=== PATIENT | female | born 1940 | race African-American/Black ===

== ENCOUNTER 2017-10-30 10:29 | Inpatient (IN) | payer OTHER ==
[~2017-10-30] VITALS: Ht 167.6 cm; Wt 77.7 kg
[2017-10-30] VITALS (44 sets, daily range): BP systolic 56–135; BP diastolic 31–122
--- NOTE | ~2017-10-30 | H ---
[facility] [place] [address] HISTORY AND PHYSICAL Name: REAGAN OAKLEY Room #: 351-P [facility] IN M.R.#: [id number] Admission: 10/30/17 Attend Phys: Dudley Knight Discharge: 11/03/17 Date of : 36 Report #: [id number] THIS REPORT FOR: //name// CC: Luis Merida ATTENDING PHYSICIAN: Dr. Luis Merida. DICTATING PHYSICIAN: Dr. Gudino. CHIEF COMPLAINT: Severe respiratory distress with nausea, vomiting. HISTORY OF PRESENT ILLNESS: The patient is a 77-year-old lady with known history of persistent vegetative state with chronic respiratory failure, who was at [facility]. The patient was noted to have severe large emesis with possible aspiration. She was noted to have severe respiratory distress while on the ventilator and was sent to the Emergency Room. On evaluation in the Emergency Room, she was noted to have a systolic blood pressure in the 60s and was noted to have septic syndrome. She also has been noted to have small-bowel obstruction and is currently being managed in the Intensive Care Unit. PAST MEDICAL HISTORY: Significant for history of small-bowel obstruction, hypertension, bowel resection, coronary artery disease, hypercholesterolemia, carcinoid tumors of the large intestine, respiratory failure, vegetative state, anoxic encephalopathy and history of cardiac arrest. ALLERGIES: She is known to be allergic to PEANUT, CHEESE and DYE. MEDICATIONS: She was currently on was metoclopramide, metoprolol, Pepcid, dextran, Tylenol and nebulizer treatments. REVIEW OF SYSTEMS: Not possible. SOCIAL HISTORY: Not available. PHYSICAL EXAMINATION: GENERAL: Elderly lady who is unresponsive. She is on a ventilator. She is having low grade temperature. Blood pressure was 92/49, pulse of 100 per minute. NECK: The patient had a tracheostomy with ventilator attached to it. LUNGS: Coarse breath sounds bilaterally. ABDOMEN: Diffuse swelling, diffuse distention with some diffuse tenderness. LABORATORY DATA: On admission showed a pH of 7.4, pCO2 of 32, pO2 of 70 and white cell count was 13.1, hemoglobin 8.6, hematocrit 25.6 and a platelet count of 356. Sodium 143, potassium 3.6, chloride 106, bicarbonate 26, BUN of 22, creatinine 1.1, glucose of 113. [address] [address] HISTORY AND PHYSICAL Name: REAGAN OAKLEY Room #: [address] [place] [address] IN .R.#: [id number] Admission: 10/30/17 Attend Phys: Dudley Knight Discharge: 11/03/17 Date of : 36 Report #: [id number] ASSESSMENT: 1. Sepsis syndrome. 2. Chronic respiratory failure. 3. Small-bowel obstruction. 4. Vegetative state. PLAN: To manage her in the Intensive Care Unit with sepsis syndrome and have a surgical consultation for the small-bowel obstruction. Also, have pulmonary consult and infectious disease consult. The patient to be continued on antibiotics. <ELECTRONICALLY SIGNED> By: Nory Gudino MD 11/08/17 1359 [id number] Nory Gudino MD /nt
--- NOTE | ~2017-10-30 | D ---
[facility] [address] DISCHARGE SUMMARY Name: REAGAN OAKLEY Room #: 351-P [facility] IN M.R.#: [id number] Admission: 10/30/17 Attend Phys: Dudley Knight Discharge: 11/03/17 Date of : 36 Report #: [id number] THIS REPORT FOR: //name// CC: Luis Merida DATE OF SERVICE: 11/03/2017 FINAL DIAGNOSES: 1. Small-bowel obstruction. 2. Ileus. 3. Chronic respiratory failure. 4. Ventilator dependence. 5. Anemia of chronic disease. 6. Healthcare-associated pneumonia. HOSPITAL COURSE: The patient was admitted with nausea and vomiting. She was diagnosed with a small-bowel obstruction. Ultimately, this turned out to be ileus or likely related as an adynamic source from her neurologic injury years ago, bedbound status and chronic ventilator status. Her bowel issues were treated conservatively. Ultimately bowel function opened up and tube feeding was restored. There was also a concern of infection with x-ray findings. Pulmonary and ID managed this with antibiotics. There were no other interval complications. PHYSICAL EXAMINATION: GENERAL: On the day of discharge, she was not responsive at her baseline, on the ventilator at baseline. VITAL SIGNS: Stable. LUNGS: Clear. HEART: Regular. ABDOMEN: Soft, distended. Normoactive bowel sounds. Tube feed infusing. EXTREMITIES: Had 1+ nonpitting edema. DISPOSITION: [facility]. She will continue Levaquin for an additional 7 days. Tube feeding and other medications to continue. I have increased her Reglan to 4 times a day. She has very poor prognosis with no meaningful expectations of recovery from her underlying neurologic injury years ago. <ELECTRONICALLY SIGNED> By: Eliot Jhaveri MD 11/04/17 1110 1309 1656 Eliot Jhaveri MD /nt
--- NOTE | ~2017-10-30 | HC ---
[facility] [place] [address] CONSULTATION Name: REAGAN OAKLEY Room #: 240-P ADM IN M.R.#: [id number] Admission: 10/30/17 Attend Phys: Dudley Knight Discharge: Date of : 38 Report #: [id number] THIS REPORT FOR: //name// CC: Luis Merida DATE OF SERVICE: 10/30/2017 CONSULTATION: Infectious Diseases. Ms Oakley is a 77-year-old female transferred from [facility] where she is a chronic ventilator patient, to the ER because of aspiration of tube feeding. Apparently, the patient was having trouble with her tube feeding. It was reported that they were able to suction 1000 mL of tube feeding from her lungs via her trach. She was transferred from the vent unit at [facility] to the Emergency Room at [facility]. In transit, her blood pressure started going down. In the ER, her blood pressure was 56/31. She was reportedly hypertensive at [facility] before she left. Temperature was 100.8. Further workup showed significant basal infiltrates, almost mass-like, as well as a small bowel obstruction on CT scan. Infectious Disease consultation was requested to assist with evaluation and management. PAST MEDICAL HISTORY: Apparently, the patient was fairly healthy in November 2013. She had a cheese allergy. According to Dr. Sebastian's note, initially, she was eating popcorn from a 3-flavored can, one of the flavors included cheese popcorn. Apparently, she had enough cheese in the other flavors to initiate an anaphylactic reaction with swelling of her tongue. She developed airway obstruction. It was difficult to achieve intubation because of the swelling. The patient became anoxic and had a cardiac arrest. She was resuscitated, but was left with severe anoxic brain injury and a chronic vegetative state. She has been essentially comatose on a ventilator since November 2013. Other medical conditions include hypertension, hyperlipidemia, myocardial infarction, pancreatitis, benign carcinoid tumors of the intestine. PAST SURGICAL HISTORY: Includes a PEG tube and then an abscess due to PEG tube requiring intraabdominal surgery. The patient developed adhesions and had another procedure for lysis of adhesions. ALLERGIES: THE PATIENT'S CHART NOTES ALLERGY TO PEANUTS, CHEESE AND NUTS, WHICH CAUSE ANAPHYLACTIC REACTIONS. MEDICATION RECONCILIATION: The patient's current medication include famotidine 20 mg IV daily, vancomycin 500 mg q. 12, enoxaparin 30 mg subq at bedtime, albumin 250 mg as directed, p.r.n. glucagon, dextrose glucose, sliding scale insulin, epinephrine, vasopressin, norepinephrine. The patient is on piperacillin and tazobactam 2.25 q. 6 hours. She has p.r.n. morphine, [address] [address] CONSULTATION Name: ADINMARINARASSARA Room #: 240-P [facility] IN M.R.#: [id number] Admission: 10/30/17 Attend Phys: Dudley Knight Discharge: Date of : 38 Report #: [id number] midazolam, lorazepam. She has scheduled DuoNeb inhalers. She received a one-time dose of furosemide as well as 3 liters of fluid. She is on vancomycin as noted with 1.5 g load followed by 500 mg q. 12 hours, Cipro 400 mg IV x 1 and Zosyn. The patient has p.r.n. Tylenol. FAMILY HISTORY: Noncontributory. SOCIAL HISTORY: The patient is a chronic ventilator patient at [facility]. No use of tobacco, alcohol or illegal drugs. REVIEW OF SYSTEMS: Unavailable as the patient is comatose chronically. PHYSICAL EXAMINATION: GENERAL: The patient appears her stated age. She appears to be in chronic coma, not in distress. VITAL SIGNS: Show maximum temperature 100.8 axillary. Blood pressure was measured as low as 56/31 and up to 83/54 after fluid resuscitation. SKIN: Shows no rash, no lesion. ENT: Shows chronic swelling of the mouth and tongue. The mouth is open. The patient has a mature tracheotomy. CHEST: Breath sounds are diminished. HEART: Sounds S1, S2. ABDOMEN: Belly soft, not tender. Gastrostomy tube is present. I cannot appreciate any distention, tympany in the belly. Bowel sounds are diminished. The patient cannot register any discomfort. EXTREMITIES: Show contractures from chronic coma, but otherwise unremarkable. LABORATORY DATA: White count is 14,000, hemoglobin 13, hematocrit 39%, platelets 597,000. Electrolytes are normal. BUN 24, creatinine 1.1. Lactate was 3.1 initially and then down to 1.7. CT scan shows a small bowel obstruction at the level of the jejunum with a transition zone, small bowel is dilated to 4 cm. Chest x-ray shows bibasilar dense infiltrates. ASSESSMENT AND PLAN: I suspect the patient is suffering from aspiration pneumonia due to small bowel obstruction, compounded by tube feeding. The patient is a chronic ventilator patient in a long-term hospital, so could very well have resistant bull. I believe broad-spectrum antibiotic therapy with 3 drugs including vancomycin, Zosyn and a quinolone is appropriate. We will be able to have results of sputum culture as well as blood and urine cultures within 24-48 hours. We also have ordered a methicillin-resistant Staphylococcus aureus swab of the nares. The surgeon who evaluated the patient put her gastrostomy tube to gravity drainage. If indeed she has another bowel obstruction, which does not respond to medical therapy, this may be an appropriate time to discuss with family or power of sweeper brush maker machine goals of care for this unfortunate patient. For now, we will try to treat the sepsis with [facility] [address] [place] [address] CONSULTATION Name: REAGAN OAKLEY Room #: 240-P ADM IN M.R.#: [id number] Admission: 10/30/17 Attend Phys: Dudley Knight Discharge: Date of : 38 Report #: [id number] broad-spectrum antibiotic therapy, respiratory toilet and follow her abdominal condition. I appreciate the opportunity to offer input in the care of the patient. I will be happy to cover through the weekend until Dr. Merida returns on Wednesday. Thank you for this consultation. <ELECTRONICALLY SIGNED> By: Joseph Dia MD 10/31/17 1922 2329 2 Joseph Dia MD /nt
--- NOTE | ~2017-10-30 | EKG ---
[place] [address] [facility] [place] [address] ELECTROCARDIOGRAM REPORT Name: REAGAN OAKLEY Room #: 240-P ADM IN M.R.#: [id number] Admission: 10/30/17 Attend Phys: Dudley Knight Discharge: Date of : 38 Report #: [id number] THIS REPORT FOR: //name// [facility] ED Test Date: 2017-10-30 Test Time: 10:39:16 Pat Name: REAGAN OAKLEY Department: Room: 240 Gender: F Revit Drafter: Mikey GREEN : 1940 Requested By: Kamini Keller Order Number: [id number] MD: Sebastian Melendez Measurements Intervals [place] Rate: 126 P: 62 PA: 144 QRS: -47 QRSD: 99 T: 35 QT: 306 QTc: 444 Interpretive Statements Sinus tachycardia Low voltage QRS Compared to ECG 02/04/2015 16:08:59 Heart rate has increased Electronically Signed On 10-30-2017 14:44:24 HEEL SEAT FITTER MACHINE by Sebastian Melendez [email or web address] <ELECTRONICALLY SIGNED> By: Sebastian Melendez MD, [facility] 10/30/17 1444 1039 1039 Sebastian Melendez MD, [facility] /EPI
--- NOTE | ~2017-10-30 | HC ---
[facility] [place] [place] [address] CONSULTATION Name: REAGAN OAKLEY Room #: 240-P ADM IN M.R.#: [id number] Admission: 10/30/17 Attend Phys: Dudley Knight Discharge: Date of : 38 Report #: [id number] THIS REPORT FOR: //name// CC: Sajan Merida PRIMARY CARE PHYSICIAN: Dr. Luis Merida. REFERRAL PHYSICIAN: ____. REASON FOR REFERRAL: [id number] respiratory failure. HISTORY OF PRESENT ILLNESS: The patient is a 77-year-old -Italian female who was brought to the Emergency Room following an episode of nausea, vomiting and apparent aspiration. A pulmonary consultation was requested. The patient resides at [facility]. She is in a persistent vegetative state on chronic mechanical ventilation. About a week ago, the patient had an episode of nausea, vomiting. Earlier today, she was found to have fever, temperature of 100.3 degrees Celsius. According to the staff at [facility], there was approximately 1000 mL of secretion suction through the ET tube, which was felt to be tube feeds. Currently, she is doing fairly well. Chest x-ray does show bilateral perihilar infiltrates, greater in the right than the left. PAST MEDICAL HISTORY: As mentioned above. She had an apparent cardiac arrest following hospitalization in 2012 when she was admitted for bowel obstruction. She has been in persistent vegetative state. Past history of myocardial infarction, chronic ventilator dependency, history of carcinoid tumor involving the large colon, status post resection, hypertension, status post PEG, tracheostomy, hypertension, history of pancreatitis, hypercholesterolemia, history of anaphylactic reaction in 2014. Records are incomplete as I do not have records from her current facility where the patient resides. PAST SURGICAL HISTORY: As mentioned above including past history of partial small-bowel obstruction at [facility] in 2012. ALLERGIES: None to medications, but she is allergic TO PEANUTS, which causes anaphylaxis, she is also said to be allergic to CHEESE and also CONTRAST DYE. MEDICATIONS ON TRANSFER: Include Lopressor, Reglan, nebulized DuoNeb, scopolamine patch, ____. FAMILY HISTORY: Noncontributory. [facility] [address] [place] [address] CONSULTATION Name: REAGAN OAKLEY Room #: Formerly named [facility] IN R.#: [id number] Admission: 10/30/17 Attend Phys: Dudley Knight Discharge: Date of : 38 Report #: [id number] SOCIAL HISTORY: There is no history of alcohol or tobacco use. She currently resides at [facility]. REVIEW OF SYSTEMS: Deferred as the patient is not able to provide answers. PHYSICAL EXAMINATION: GENERAL: She is not responsive. Eyes are open. VITAL SIGNS: Temperature 100.8 degrees axillary, pulse is 110, respiratory rate is 30, blood pressure is 92/58 mmHg, saturation 94%. HEENT: Normocephalic, atraumatic. Status post tracheostomy. NECK: Supple, without lymphadenopathy or thyromegaly. CHEST: Breath sounds are coarse bilaterally. Few scattered crackles are heard in the bases. No overt wheezes. CARDIOVASCULAR: Normal S1, S2. No murmurs or gallop. There is no JVD. There is no carotid bruit. Pulses are 2+/4+ bilaterally. ABDOMEN: Soft, no masses felt. Positive for PEG tube placement. GENITOURINARY: Deferred. RECTAL: Deferred. EXTREMITIES: No cyanosis, clubbing, edema. LABORATORY DATA: Portable chest x-ray again shows bilateral perihilar infiltrates greater in the right than the left. CT abdomen and pelvis shows small-bowel obstruction in the proximal to mid small bowel area, status post gastrostomy tube. Influenza A and B is negative. Arterial blood gas revealed pH 7.52, pCO2 of 27, pO2 of 68 on FiO2 40%. Electrolytes: Sodium 136, potassium 3.4, chloride 99, CO2 of 27. BUN is 27; creatinine is 1.6, her normal baseline creatinine. Albumin 2.3. IMPRESSION: 1. Apparent massive aspiration in this 77-year-old -Italian female. Chest x-ray shows bilateral infiltrates. Aspiration pneumonia is likely. 2. Acute-on chronic hypoxic respiratory failure due to persistent vegetative state. 3. Remote history of cardiac arrest, anoxic encephalopathy, persistent vegetative state, now ventilator dependent. 4. Acute kidney injury. The patient was hypotensive when she arrived in the ER. Acute tubular necrosis should be considered. 5. Severe protein calorie malnutrition with an albumin of 2.3. 6. Hypertension. 7. Past history of bowel obstruction. CT abdomen and pelvis now again shows bowel obstruction. We will defer to primary team. May need GI consultants and perhaps surgical consultation. 8. Remote history of pancreatitis. 9. Remote history of carcinoid tumor involving the large colon, status post resection. 10. Status post PEG tube placement. [facility] [address] [place] [address] CONSULTATION Name: REAGAN OAKLEY Room #: 240-P ADM IN MDarrick#: [id number] Admission: 10/30/17 Attend Phys: Dudley Knight Discharge: Date of : 38 Report #: [id number] RECOMMENDATION: I will continue mechanical ventilation. Wean for saturation 90%. We will try to keep peak inspiratory pressure below 40 cm of water pressure. Broad spectrum antibiotics is recommended to cover for aspiration pneumonia. Infectious Disease has been consulted. DVT and GI prophylaxis will be addressed. Once stable, I will address nutritional support. Based on severe comorbid conditions, overall outlook appears to be very poor. Thank you for this consultation. <ELECTRONICALLY SIGNED> By: Daljit Bah MD 10/31/17 1602 1523 13 Daljit Bah MD /nt
[~2017-10-30 10:29] MED LIST: ACID CONTROL20 MG PER TUBE; AKWA TEARS OIN3.5 GM OP; ALBUTEROL2.5 MG/0.5 IH; ALBUTEROL2.5 MG/31 INH; AMARYL2 MG PT; ASPIR-LOW81 MG PER TUBE; ATIVAN2 MG/1 ML IV PUSH; BAYER CHEWABLE81 MG PT; CATHFLO ACT2 MG/VIAL IJ; COZAAR 50 MG TA50 M1 PO; DEX4 GLUCOSE1 EACH PO; DEXTROSE 5025 GM/SYR IV PUSH; ENOXAPARIN40 MG/0.1 INJECTION; FENTANYL N IV; GLUCAGEN1 M2 IM; GLUCOSE 40% GEL15 GM PO; LEVEMIR100 UNIT/1 SUBQ; LO-DOSE ASPIRIN81 M1 PO; LOPRESSOR25 PER TUBE; LOPRESSOR25 PO; MAPAP160 MG/5 M PT; MAPAP32 MG/1 ML PER TUBE; NOVOLOG100 UNIT/1 SQ; PERIDEX15 ML MM; PRAVACHOL20 MG PER TUBE; TEARS NATURALE1 EACH OPHTHALMIC; TRIPLE ANTIBIO1 EACH TP; TYLENOL325 MG PER TUBE
[2017-10-30 11:01] LABS: ABSOLUTE NEUTROPHILS 12.8 thou/uL (1.4-8.2); BASOPHILS 0.6 % (0.0-2.0); EOSINOPHILS 0.2 % (0.0-3.0); HEMATOCRIT 39.6 % (37.0-47.0); LYMPHOCYTES 5.9 % (24.0-44.0); MCH 31.2 pg (26.0-34.0); MCHC 32.7 g/dL (28.0-37.0); MCV 95.1 fL (80.0-100.0); MONOCYTES 2.4 % (1.0-8.0); PLATELET COUNT 593 thou/uL (150-400); POLYS 90.9 % (36.0-66.0); RBC 4.16 mil/uL (4.20-5.00); RDW 14.4 % (10.5-14.5); WBC 14.1 thou/uL (4.0-11.0)
[2017-10-30 11:11] LABS: CALCIUM 9.4 mg/dL (8.5-10.1); CREATININE 1.6 mg/dL (0.6-1.0); POTASSIUM 3.4 mmol/L (3.5-5.1)
[2017-10-30 11:16] LABS: ALBUMIN 2.3 g/dL (3.4-5.0); DIRECT BILIRUBIN 0.1 mg/dL (<0.1-0.3); TOTAL BILIRUBIN 0.3 mg/dL (<0.1-1.0); TOTAL PROTEIN 7.3 g/dL (6.4-8.2)
[2017-10-30] MEDS ORDERED: GLYCOPYRROLATE 11 MG PER TUBE (11:20)
[2017-10-30] MEDS ORDERED: METOCLOPRAM5 MG/5 M3 PER TUBE (11:21)
[2017-10-30] MEDS ORDERED: SCOPOLAMINE1 EACH TRANSDERM (11:27)
[2017-10-30 12:09] LABS: BE(vivo) 0.4 mmol/L (-2 to +3); HCO3 22.1 mmol/L (22.0-26.0); PCO2 27.5 mmHg (35.0-45.0); pH 7.523 (7.360-7.450); sO2 95.5 % (92.0-98.0)
[2017-10-30 16:22] LABS: CALCIUM 7.9 mg/dL (8.5-10.1); CREATININE 1.3 mg/dL (0.6-1.0); POTASSIUM 3.3 mmol/L (3.5-5.1)
[2017-10-30 17:18] LABS: URINE BILIRUBIN NEGATIVE (Negative); URINE BLOOD 2+ (Negative); URINE CLARITY CLOUDY; URINE COLOR YELLOW; URINE GLUCOSE-RANDOM* NEGATIVE (Negative); URINE KETONES TRACE (Negative); URINE LEUKOCYTES-REFLEX NEGATIVE (Negative); URINE NITRITE-REFLEX NEGATIVE (Negative); URINE PROTEIN (DIPSTICK) 1+ (Negative); URINE SPECIFIC GRAVITY >= 1.030 (1.005-1.035); URINE UROBILINOGEN 0.2 E.U./dl (0.2-1.0)
[2017-10-30 17:25] LABS: SQUAMOUS 4-10 Moderate /LPF (0-3)
[2017-10-30 17:28] LABS: AMORPHOUS URATES Moderate /LPF (None Seen); CASTS None Seen /LPF (None Seen); URINE RBC 3-10 Few /HPF (0-2)
[2017-10-30 17:29] LABS: URINE WBC-REFLEX 0-5 Rare /HPF (0-5)
[2017-10-30 18:25] LABS: CALCIUM 8.1 mg/dL (8.5-10.1); CREATININE 1.3 mg/dL (0.6-1.0); POTASSIUM 3.2 mmol/L (3.5-5.1)
[2017-10-30 22:28] LABS: CALCIUM 7.9 mg/dL (8.5-10.1); CREATININE 1.1 mg/dL (0.6-1.0); POTASSIUM 3.4 mmol/L (3.5-5.1)
[2017-10-31] VITALS (35 sets, daily range): BP systolic 75–123; BP diastolic 43–77
[2017-10-31 01:05] LABS: CALCIUM 7.8 mg/dL (8.5-10.1); CREATININE 1.1 mg/dL (0.6-1.0); POTASSIUM 3.6 mmol/L (3.5-5.1)
[2017-10-31 05:13] LABS: BE(vivo) 0.8 mmol/L (-2 to +3); HCO3 23.8 mmol/L (22.0-26.0); PO2 70.3 mmHg (80.0-100.0); pH 7.489 (7.360-7.450); sO2 95.5 % (92.0-98.0)
[2017-10-31 05:25] LABS: HEMATOCRIT 25.6 % (37.0-47.0); MCH 31.9 pg (26.0-34.0); MCHC 33.8 g/dL (28.0-37.0); MCV 94.4 fL (80.0-100.0); RBC 2.71 mil/uL (4.20-5.00); RDW 14.1 % (10.5-14.5); WBC 13.1 thou/uL (4.0-11.0)
[2017-10-31 05:37] LABS: HEMOGLOBIN 8.6 gm/dL (12.0-15.0)
[2017-11-01] VITALS (42 sets, daily range): BP systolic 89–142; BP diastolic 46–89
[2017-11-01 05:20] LABS: BE(vivo) 1.6 mmol/L (-2 to +3); PCO2 34.7 mmHg (35.0-45.0); PO2 92.4 mmHg (80.0-100.0); pH 7.476 (7.360-7.450); sO2 97.6 % (92.0-98.0)
[2017-11-01 05:27] LABS: HEMATOCRIT 26.8 % (37.0-47.0); HEMOGLOBIN 9.1 gm/dL (12.0-15.0); MCH 32.1 pg (26.0-34.0); MCHC 33.7 g/dL (28.0-37.0); MCV 95.2 fL (80.0-100.0); RBC 2.82 mil/uL (4.20-5.00); RDW 14.8 % (10.5-14.5); WBC 10.1 thou/uL (4.0-11.0)
[2017-11-01 05:34] LABS: CALCIUM 8.5 mg/dL (8.5-10.1); CREATININE 0.8 mg/dL (0.6-1.0)
[2017-11-01 05:35] LABS: POTASSIUM 2.8 mmol/L (3.5-5.1)
[2017-11-02] VITALS (9 sets, daily range): BP systolic 95–143; BP diastolic 62–79
[2017-11-02 05:09] LABS: HEMATOCRIT 25.8 % (37.0-47.0); HEMOGLOBIN 8.8 gm/dL (12.0-15.0); MCH 32.6 pg (26.0-34.0); MCHC 34.1 g/dL (28.0-37.0); MCV 95.6 fL (80.0-100.0); RBC 2.7 mil/uL (4.20-5.00); RDW 14.8 % (10.5-14.5); WBC 7.9 thou/uL (4.0-11.0)
[2017-11-02 05:22] LABS: CALCIUM 8.4 mg/dL (8.5-10.1); CREATININE 0.8 mg/dL (0.6-1.0); POTASSIUM 3.7 mmol/L (3.5-5.1)
[2017-11-03 00:15] VITALS: BP 113/63
[2017-11-03 05:15] VITALS: BP 121/77
[2017-11-03 06:18] LABS: CALCIUM 8.3 mg/dL (8.5-10.1); CREATININE 0.8 mg/dL (0.6-1.0); POTASSIUM 3.4 mmol/L (3.5-5.1)
[2017-11-03 07:40] VITALS: BP 132/76
[2017-11-03 12:07] VITALS: BP 118/56
[2017-11-03] MEDS ORDERED: LEVAQUIN 250 M250 MG PER TUBE (13:02)
[2017-11-03] MEDS ORDERED: LACTULOSE20 GM/30 M PER TUBE (13:03)
== END 2017-11-03 16:15 | DRG 870 ==
LOC: ER 10:29 → EROBS 11:20 → ICU 11:20 → 3W 11-02 12:08
PROVIDERS: Emergency Medicine; Internal Medicine; Internal Medicine Geriatric Medicine; Internal Medicine Pulmonary Disease
PROC: 02HV33Z Insertion of Infusion Device into Superior Vena Cava, Percutaneous Approach (ICD-10-PCS; principal; 2017-10-30)
PROC: B548ZZA Ultrasonography of Superior Vena Cava, Guidance (ICD-10-PCS; principal; 2017-10-30)
PROC: 5A1955Z Respiratory Ventilation, Greater than 96 Consecutive Hours (ICD-10-PCS; principal; 2017-10-30)
DX: A41.9 Sepsis, unspecified organism (principal); J69.0 Pneumonitis due to inhalation of food and vomit; G93.40 Encephalopathy, unspecified; J96.21 Acute and chronic respiratory failure with hypoxia; E43 Unspecified severe protein-calorie malnutrition; N17.0 Acute kidney failure with tubular necrosis; R65.21 Severe sepsis with septic shock; K56.609 Unspecified intestinal obstruction, unspecified as to partial versus complete obstruction; G93.1 Anoxic brain damage, not elsewhere classified; K56.7 Ileus, unspecified; Z99.11 Dependence on respirator [ventilator] status; D63.1 Anemia in chronic kidney disease; Z68.27 Body mass index [BMI] 27.0-27.9, adult; Z91.010 Allergy to peanuts; Z91.018 Allergy to other foods; Z93.0 Tracheostomy status
CPT/HCPCS: 10078; 10879; 27000